=== PATIENT | female | born 1950 | race Hispanic/Latino ===

== ENCOUNTER 2016-08-24 06:21 | Day surgery (SDC) | payer OTHER ==
[2016-08-11 11:47] VITALS: BMI 34.9
[2016-08-24] MEDS ORDERED: Lidocaine 2% Inj (20ml) ONE (06:30)
[2016-08-24] MEDS ORDERED: Iodixanol 320 MG/ML 200 ML BOTTLE IV ONE (06:31)
[2016-08-24] MEDS ORDERED: Iodixanol 320 MG/ML 100 ML BOTTLE IV ONE (06:31)
[2016-08-24] MEDS ORDERED: Iohexol 350mgl/ml 50 ML ONE (06:31)
[2016-08-24] MEDS ORDERED: Phenylephrine 10 mg/ml Inj ONE (06:31)
[2016-08-24] MEDS ORDERED: Nitroglycerin 50mg in D5W 50 MG/250 ML BOTTLE IV ONE (06:31)
[2016-08-24] MEDS ORDERED: DiphenhydrAMINE 50 mg/ml Inj ONE (07:00)
[2016-08-24 07:01] VITALS: RESP 18
[2016-08-24] MEDS ORDERED: Famotidine 20mg/50ml 20 MG/50 ML BAG IVPB ONE (07:01)
[2016-08-24 07:08] LABS: ADD MANUAL DIFF? NO
[2016-08-24 07:17] LABS: ALB/GLOB RATIO 1.4 (1.1-1.8); ALKALINE PHOSPHATASE 82 U/L (38-133); ALT/SGPT 32 U/L (7-56); AST/SGOT 24 U/L (15-39); BILIRUBIN,TOTAL 0.8 mg/dL (0.2-1.3); BLOOD UREA NITROGEN 17 mg/dL (7-21); CALCIUM 9.2 mg/dL (8.4-10.5); CARBON DIOXIDE 30 mmol/L (21-33); CHLORIDE 99 mmol/L (98-107); GFR AFRICAN-AMERICAN > 60; GLUCOSE,RANDOM 141 mg/dL (70-110); POTASSIUM 3.8 mmol/L (3.6-5.0); SODIUM 137 mmol/L (132-148); TOTAL PROTEIN 7.5 g/dL (5.8-8.3)
[2016-08-24] MEDS ORDERED: Midazolam 2 MG/2 ML VIAL ONE (07:26)
[2016-08-24 07:34] LABS: HEMATOCRIT 36.4 % (36.0-48.0); INR 0.97 (0.93-1.08); MEAN CELL VOLUME 85.8 fL (80.0-105.0); MEAN CORPUSCULAR HEMOGLOBIN 29.7 pg (25.0-35.0); PARTIAL THROMBOPLASTIN TIME 26.7 Seconds (23.7-30.8); WHITE BLOOD COUNT 8.4 10^3/ul (4.5-11.0)
[2016-08-24 07:35] LABS: EOS % 3.6 % (1.5-5.0); GRAN % 52.9 % (50.0-68.0); LYMPH % 34.6 % (22.0-35.0); MEAN CORPUSCULAR HGB CONC 34.6 g/dl (31.0-37.0); MEAN PLATELET VOLUME 8.7 fl (7.0-11.0); MONO % 8.3 % (1.0-6.0); PLATELET COUNT 236 10^3/uL (120.0-450.0); RED CELL DISTRIBUTION WIDTH 13.8 % (11.5-14.5)
[2016-08-24 07:36] LABS: BASO # 0.05 K/mm3 (0.0-2.0); BASO % 0.6 % (0.0-3.0); EOS # 0.3 (0.0-0.7); GRAN # 4.44 (1.4-6.5); LYMPH # 2.9 (1.2-3.4); MONO # 0.7 (0.1-0.6)
--- NOTE | 2016-08-24 08:08 | HP ---
REASON FOR ADMISSION: Left heart catheterization, possible angioplasty, abnormal stress test. BRIEF CLINICAL HISTORY: This is a 65-year-old female with past medical history significant for hyper tension, complaining of dull ache pain and chest pain, dyspnea on exertion, shortness of breath on ex ertion, so patient underwent a stress test dated 08/03/2016 that showed probably abnormal SPECT myocar dial perfusion study, reversible anterior defect suspicious for ischemia, ejection fraction was 64%, so patient is scheduled for elective cardiac cath and possible angioplasty. PAST MEDICAL HISTORY: Significant for hypertension. SOCIAL HISTORY: Denies any history of alcohol abuse. CURRENT MEDICATIONS: The patient is taking hydrochlorothiazide 12.5 mg daily, losartan 100 mg, aspir in 81 mg daily. ALLERGIES: PENICILLIN, IODINE AND IODINE-CONTAINING PRODUCTS. Previous cardiac workup: Most recent cardiac workup as follows: The patient had a stress test dated 08/03/2016 that shows abnormal Lexiscan, ejection fraction 64%, reversible anterior defect suspicious for ischemia. The patient had echocardiography done on 07/27/2016 that shows ejection fraction 45%-50 %, mild to moderate aortic stenosis, trace aortic regurgitation, trace mitral regurgitation, trace tr icuspid regurgitation. REVIEW OF SYSTEMS: As per HPI. PHYSICAL EXAMINATION: GENERAL: Height of the patient 5 feet weight of the patient is 185 pounds, body mass index 35 kg/m2. VITAL SIGNS: Heart rate 80, blood pressure 140/80, respiratory rate 17. HEENT: PERRLA. Extraocular muscles intact. NECK: Supple. No carotid bruits. No thyromegaly. CHEST: Clear to auscultation. HEART: S1, S2 regular. ABDOMEN: Soft. EXTREMITIES: Clubbing and cyanosis negative. BLOOD WORKUP: Pending. IMPRESSION: Abnormal stress test, mild aortic stenosis, mild to moderate aortic stenosis, trace aort ic and mitral regurgitation, trace tricuspid regurgitation, hypertension. RECOMMENDATION: We will get blood workup. Risks, benefits and alternatives discussed with the patie nt. The patient agreed. We will proceed for cardiac catheterization. Further recommendation after cardiac catheterization. We will follow with you. Thank you, Dr. Sanders and Dr. Vaz, for providing the opportunity in taking care of the patient. Salma Soriano MD cc: [id number] TT: 08/23/2016 18:53:44 rn
[2016-08-24] MEDS ORDERED: Bacitracin 500 Units/gm Oint Foilpak UD TOP ONE (08:43)
[2016-08-24] MEDS ORDERED: Sodium Chloride 0.9% 1,000 ML IV SCH (08:45)
[2016-08-24] MEDS ORDERED: Potassium Chloride 20 mEq ER Tab PO ONE (09:00)
[2016-08-24 09:08] VITALS: TEMP 97.5
[2016-08-24] MEDS ORDERED: Bacitracin 500 Units/gm Oint Foilpak UD ONE (11:00)
[2016-08-24 11:51] VITALS: BP 136/71; PULSE 67; O2SAT 96
--- NOTE | 2016-08-24 16:40 | CARD ---
APPROVED REPORT Procedure(s) performed: Left Heart Catheterization HISTORY The patient is a 65 year-old female with a history of : most recent EF: 64%. (EF Method: RADIONUCLIDE), hypertension , dyslipidemia , Chest pain and abnormal stress test. INDICATION The indication(s) include : positive stress test. CASE TECHNIQUE The patient was brought electively to the Cardiac Catheterization Laboratory in a fasting state and was prepped and draped in a sterile manner. The left wrist was infiltrated with 2% Lidocaine subcutaneous anesthesia. A 6 Fr Glidesheath (Radial) sheath was inserted into the left radial artery without difficulty. Coronary angiography was performed using coronary diagnostic catheters. The left coronary system was accessed and visualized with a Diagnostic ,5 Fr JR 4 catheter. The right coronary system was accessed and visualized with a Diagnostic ,6 Fr 100 cm TIG 4 (Radial) catheter. The left ventricle was accessed and visualized with a 6 Fr 100 cm TIG 4 (Radial) catheter. Left ventricular/Aortic Valve gradient assessed on pullback. Left ventriculogram was performed in BIGGS projection. The patient tolerated the procedure well and there were no complications associated with the procedure. Vessel Analysis The patient's coronary anatomy is left dominant. The left main coronary artery is a large size vessel with intimal irregularities. The left main trifurcates to the left anterior descending, circumflex, and ramus. The left anterior descending artery is a medium size vessel with intimal irregularities and without significant stenosis. Very tortous vessel The first diagonal branch is a medium size vessel with diffuse calcification noted throughout this vessel and without significant stenosis. The circumflex artery is a large size vessel with diffuse calcification noted throughout this vessel and without significant stenosis. But Very tortous The first obtuse marginal branch is a small size vessel with intimal irregularities. The second obtuse marginal branch is a small size vessel without significant stenosis. The third obtuse marginal branch is a small size vessel without significant stenosis. The left posterior descending artery is a medium size vessel with intimal irregularities and without significant stenosis. The ramus intermedius artery is a medium size vessel with diffuse calcification noted throughout this vessel and without significant stenosis. There is a 55% stenosis in the ostial segment. The right coronary artery is a medium size vessel with intimal irregularities and without significant stenosis. Left Ventricle The left ventricle is normal in size with normal contractility. There was no cardiomyopathy. The left ventricular ejection fraction is estimated to be 65%. The left ventricular end diastolic pressure is 20 mmHg. There was no gradient across the aortic valve upon pullback. Conclusion Non Obstructive CAD, Limited to Ostial Ramus 55% stenosis. Preserved Lv Fx EF-65%, EDP-20 mmof Hg Hypertensive Heart Diz. Recommendations Aggressive Medical TherapyCardiac Risk Reduction Program Weight Loss Reduction Program CC;Drs. Sanders/ Milind.
== END 2016-08-24 12:10 | disposition home or self-care (01) ==
LOC: CATH 06:21
PROVIDERS: ATTEND Internal Medicine Cardiovascular Disease
DX: I25.10 Atherosclerotic heart disease of native coronary artery without angina pectoris (principal); E78.5 Hyperlipidemia, unspecified; I11.9 Hypertensive heart disease without heart failure; I08.3 Combined rheumatic disorders of mitral, aortic and tricuspid valves; R06.02 Shortness of breath; R07.9 Chest pain, unspecified; Z79.82 Long term (current) use of aspirin; Z88.0 Allergy status to penicillin; Z88.8 Allergy status to other drugs, medicaments and biological substances; R94.39 Abnormal result of other cardiovascular function study

== ENCOUNTER 2017-05-10 07:15 | Day surgery (SDC) | payer MEDICARE ==
[2017-05-01 09:41] VITALS: BMI 38.7
[2017-05-10] MEDS ORDERED: Lidocaine 2% Inj (20ml) ONE (08:05)
[2017-05-10] MEDS ORDERED: Propofol 10 mg/ml Inj (20 ML) ONE (08:05)
[2017-05-10] MEDS ORDERED: Sodium Chloride 0.9% 1,000 ML IV SCH (09:00)
[2017-05-10 09:03] VITALS: TEMP 98
[2017-05-10 09:37] VITALS: BP 141/82; RESP 14; O2SAT 98
[2017-05-10 09:39] VITALS: PULSE 72
== END 2017-05-10 10:03 | disposition home or self-care (01) ==
LOC: ENDO 07:15
PROVIDERS: ATTEND Specialist
DX: Z12.11 Encounter for screening for malignant neoplasm of colon (principal); K57.30 Diverticulosis of large intestine without perforation or abscess without bleeding; K64.8 Other hemorrhoids; I10 Essential (primary) hypertension; E78.5 Hyperlipidemia, unspecified
CPT/HCPCS: 45378; J2704; J7040 ×2

== ENCOUNTER 2018-06-28 10:37 | Outpatient (CLI) | payer MEDICARE | END 2018-06-28 10:38 | disposition home or self-care (01) | LOC: RAD 10:37 ==

== ENCOUNTER 2018-07-26 12:01 | Outpatient (CLI) | payer MEDICARE | END 2018-07-26 12:02 | disposition home or self-care (01) | LOC: RAD 12:01 ==

== ENCOUNTER 2018-08-16 15:19 | Emergency (ER) | payer MEDICARE ==
[2018-08-16 15:47] VITALS: BMI 34.9
--- NOTE | 2018-08-16 15:47 | ED PDOC ---
Arrival/HPI - General Chief Complaint: Headache Time Seen by Provider: 08/16/18 15:46 Historian: Patient - History of Present Illness Narrative History of Present Illness (Text): 08/16/18 15:47 Patient is a 67 yo female with HTN and impaired glucose tolerance who presents with headache, ear pain, and weakness. Patient states that she had a UTI in early July when she started to feel generalized weakness. She took an antibiotic and saw her PMD who reportedly told her the UTI resolved. Patient continued to feel generalized weakness and has developed bilateral ear pain. She describes the pain as throbbing. She denies hearing changes or tinnitus. She also describes a frontal headache. She denies vision changes, nausea, and vomiting. She denies fevers and chills. She says that she took Sudafed that did not resolve symptoms. She denies nasal congestion, cough, SOB. She also took iron although she has never been told she has iron deficiency or anemia. SHe denies any recent changes in her prescribed medications. She has already seen her PMD for these symptoms, and she was told her work-up was negative. She decided to come to the ED because she is not improving. Time/Duration: > week Symptom Onset: Gradual Symptom Course: Worsening Quality: Throbbing Past Medical History - Provider Review Nursing Documentation Reviewed: Yes Primary Care Provider: Esa Sanders - Infectious Disease Hx of Infectious Diseases: None - Cardiac Hx Pacemaker: No - Pulmonary Hx Respiratory Disorders: No - Neurological Hx Paralysis: No - Endocrine/Metabolic Hx Diabetes Mellitus Type 2: Yes - Hematological/Oncological Hx Blood Transfusions: No - Musculoskeletal/Rheumatological Hx Musculoskeletal Disorders: Yes - Psychiatric Hx Substance Use: No - Surgical History Hx Breast Biopsy: Yes Hx Tonsillectomy: Yes - Anesthesia Hx Anesthesia Reactions: No Hx Malignant Hyperthermia: No - Suicidal Assessment Feels Threatened In Home Enviroment: No Family/Social History - Physician Review Nursing Documentation Reviewed: Yes Family/Social History: Unknown Family HX Smoking Status: Never Smoked Hx Alcohol Use: No Hx Substance Use: No Hx Substance Use Treatment: No Allergies/Home Meds Allergies/Adverse Reactions: Allergies Penicillins Allergy (Verified 08/16/18 15:51) SHORTNESS OF BREATH Iodine and Iodide Containing Produc Adverse Reaction (Verified 08/16/18 15:51) RASH Home Medications: Home Meds Medication Instructions Recorded Confirmed Losartan [Cozaar] 100 mg PO DAILY 08/03/16 05/10/17 hydroCHLOROthiazide [Microzide] 12.5 mg PO DAILY 08/03/16 05/10/17 Aspirin [Ecotrin] 81 mg PO DAILY 08/11/16 05/10/17 Ascorbic Acid [Vitamin C 500 mg 500 mg PO DAILY 05/01/17 05/10/17 Tab] Cholecalciferol [Vitamin D 1000 IU] 1,000 iu PO DAILY 05/01/17 05/10/17 Cranberry Fruit Extract [Cranberry] 420 mg PO DAILY 05/01/17 05/10/17 Echinacea 1.2 gm PO DAILY 05/01/17 05/10/17 Esomeprazole Magnesium [Nexium] 20 mg PO DAILY 05/01/17 05/10/17 Fish Oil/Dha/Epa [Fish Oil 1,200 1 cap PO DAILY 05/01/17 05/10/17 mg Fish Oil] Lactobacillus Combination No.8 1 cap PO Q72H 05/01/17 05/10/17 [Adult Probiotic] Multivitamin [Multivitamins] 1 cap PO DAILY 05/01/17 05/10/17 Clonazepam [Klonopin] 1 mg PO DAILY 08/16/18 08/16/18 metFORMIN [glucOPHAGE] 500 mg PO DAILY 08/16/18 08/16/18 Review of Systems - Review of Systems Constitutional: Fatigue. absent: Weight Change, Fevers, Night Sweats Eyes: absent: Vision Changes, Eye Pain ENT: absent: Hearing Changes, Tinnitus, Sore Throat, Rhinorrhea, Sinus Congestion Respiratory: absent: SOB, Cough Cardiovascular: absent: Chest Pain, Palpitations Gastrointestinal: absent: Abdominal Pain, Constipation, Diarrhea, Nausea, Vomiting Genitourinary Female: absent: Dysuria, Frequency, Hematuria Musculoskeletal: absent: Back Pain Skin: absent: Rash, Pruritis, Skin Lesions Neurological: Headache. absent: Dizziness, Focal Weakness Endocrine: absent: Diaphoresis Hemo/Lymphatic: absent: Adenopathy Psychiatric: Anxiety Physical Exam Vital Signs Reviewed: Yes Temperature: Afebrile Blood Pressure: Hypertensive Pulse: Regular Respiratory Rate: Normal Appearance: Positive for: Non-Toxic, Comfortable Pain Distress: None Mental Status: Positive for: Alert and Oriented X 3 - Systems Exam Head: Present: Atraumatic, Normocephalic Pupils: Present: PERRL Extroacular Muscles: Present: EOMI Conjunctiva: Present: Normal Ears: Present: Other (scar tissue b/l) Mouth: Present: Moist Mucous Membranes Pharnyx: Present: Normal Neck: Present: Normal Range of Motion. No: Lymphadenopathy Respiratory/Chest: Present: Clear to Auscultation, Good Air Exchange Cardiovascular: Present: Regular Rate and Rhythm, Normal S1, S2 Abdomen: No: Tenderness, Distention Back: Present: Normal Inspection Upper Extremity: Present: Normal Inspection Lower Extremity: Present: Normal Inspection Neurological: Present: GCS=15, CN II-XII Intact, Speech Normal Skin: Present: Warm, Dry, Normal Color Lymphatic: No: Cervical Adenopathy Psychiatric: Present: Alert, Oriented x 3, Normal Insight, Normal Concentration, Anxious Medical Decision Making ED Course and Treatment: 08/16/18 16:22 CT sinuses, labs 08/16/18 17:[address] No clinical lab abnormalities. Explained to patient to follow up with her PMD and see ENT for her ear symptoms. - Lab Interpretations I have reviewed the lab results: Yes Interpretation: No clinic. lab abnormalty Disposition/Present on Arrival - Present on Arrival Any Indicators Present on Arrival: No History of DVT/PE: No History of Uncontrolled Diabetes: No Urinary Catheter: No History Surgical Site Infection Following: None - Disposition Have Diagnosis and Disposition been Completed?: Yes Diagnosis: Ear fullness, Sinus pressure Disposition: HOME/ ROUTINE Disposition Time: 17:19 Patient Plan: Discharge Condition: GOOD Additional Instructions: MORRO CHUN, thank you for letting us take care of you today. Your provider was Jan Mathew MD and you were treated for HEADACHES, EAR PAIN. [facility] emergency medical care you received today was directed at your acute symptoms. If you were prescribed any medication, please fill it and take as directed. It may take several days for your symptoms to resolve. Return to the Emergency Department if your symptoms worsen, do not improve, or if you have any other problems. Please contact your doctor or call one of the physicians/clinics you have been referred to that are listed on the Patient Visit Information form that is included in your discharge packet. Bring any paperwork you were given at discharge with you along with any medications you are taking to your follow up visit. Our treatment cannot replace ongoing medical care by a primary care provider outside of the emergency department. Thank you for allowing the [facility] team to be part of your care today. Referrals: Esa Sanders MD [Family Provider] - Follow up with primary Lux Naranjo DO [Staff Provider] - Follow up with primary Forms: [employer] (Czech)
[2018-08-16 16:15] VITALS: BP 152/85; PULSE 71; RESP 18; TEMP 97.5; O2SAT 97
[2018-08-16 16:40] LABS: BASO # 0.03 K/mm3 (0.0-2.0); BASO % 0.4 % (0.0-3.0); EOS # 0.1 (0.0-0.7); EOS % 1.5 % (1.5-5.0); HEMOGLOBIN 12.3 g/dL (12.0-16.0); LYMPH # 2.2 (1.2-3.4); LYMPH % 25.6 % (22.0-35.0); MEAN CELL VOLUME 86.5 fl (80.0-105.0); MEAN CORPUSCULAR HEMOGLOBIN 29.6 pg (25.0-35.0); MEAN CORPUSCULAR HGB CONC 34.2 g/dl (31.0-37.0); MEAN PLATELET VOLUME 8.6 fl (7.0-11.0); MONO # 0.7 (0.1-0.6); MONO % 7.7 % (1.0-6.0); RBC 4.16 10^6/uL (3.5-6.1); RED CELL DISTRIBUTION WIDTH 14.8 % (11.5-14.5); WHITE BLOOD COUNT 8.5 10^3/uL (4.5-11.0)
[2018-08-16 16:44] LABS: ALB/GLOB RATIO 1.5 (1.1-1.8); ALBUMIN 4.4 g/dL (3.0-4.8); ALT/SGPT 34 U/L (7-56); AST/SGOT 38 U/L (14-36); BLOOD UREA NITROGEN 23 mg/dL (7-21); GFR NON-AFRICAN AMERICAN 55
[2018-08-16 16:55] LABS: PH,URINE 6.5 (4.7-8.0); URINE BILIRUBIN NEGATIVE (NEGATIVE); URINE BLOOD NEGATIVE (NEGATIVE); URINE GLUCOSE (UA) NEGATIVE (NEGATIVE); URINE LEUKOCYTE ESTERASE NEGATIVE Leu/uL (NEGATIVE); URINE PROTEIN NEGATIVE mg/dL (<30 mg/dL); URINE UROBILINOGEN 0.2 E.U./dL (<1 E.U./dL)
[2018-08-16 16:56] LABS: URINE APPEARANCE CLEAR (CLEAR); URINE COLOR LIGHT YELLOW (YELLOW)
[2018-08-16 17:00] LABS: FREE T4 1.15 ng/dL (0.78-2.19)
== END 2018-08-16 17:37 | disposition home or self-care (01) ==
LOC: ED 15:19
DX: J34.9 Unspecified disorder of nose and nasal sinuses (principal); H93.90 Unspecified disorder of ear, unspecified ear; I10 Essential (primary) hypertension; E11.9 Type 2 diabetes mellitus without complications